=== PATIENT | female | born 1935 | race Caucasian/White ===

== ENCOUNTER 2019-12-01 01:42 | Inpatient (IN) | payer MEDICARE ==
[2019-12-01] MEDS ORDERED: Aspirin 325 MG TAB ONE (02:31)
[2019-12-01 04:51] VITALS: BMI 27.9
[2019-12-01] MEDS ORDERED: Acetaminophen/Codeine 30-300mg Tablet PO PRN (06:10)
[2019-12-01 06:46] LABS: Anion Gap 15 mmol/L (10-20); BUN (Urea Nitrogen) 46 mg/dL (9.8-20.1); Calc. Creatinine Clearance 42 mL/min (70-130); Calcium 8.4 mg/dL (7.8-10.44); Carbon Dioxide 14 mmol/L (23-31); Chloride 119 mmol/L (98-107); Estimated GFR-MDRD 48; Glucose 105 mg/dL (83-110); Potassium 4.2 mmol/L (3.5-5.1); Sodium 144 mmol/L (136-145)
[2019-12-01 06:47] LABS: Troponin I 0.184 ng/mL (< 0.028)
--- NOTE | 2019-12-01 07:23 | HP ---
PRIMARY CARE PHYSICIAN: Dr. Huffman. SENIOR CYTOTECHNOLOGIST: Jackie Hampton MD CHIEF COMPLAINT: Low heart rate. HISTORY OF PRESENT ILLNESS: An 84-year-old female with past medical history of congestive heart failure, hypertension, dyslipidemia, rheumatoid arthritis, who presented to [facility] ER after noticing low heart rates of 38 beats per minute in the absence of angina, near-syncope or syncope prompting further evaluation. The patient reports that she takes metoprolol-XL 50 mg daily and checks her blood pressure and heart rate routinely with resting heart rates normally around 60 beats per minute. Three days ago, she noted her heart rate is dropping to approximately 38 beats per minute in the absence of near-syncope or syncope or angina and called her primary care physician's office, who instructed her to hold her metoprolol-XL tablet for 2 days' duration and reduce the dose by one-half. For the next few days, her resting heart rates improved to 60 beats per minute. Yesterday morning, she took one-half tablet (25 mg) and again, her resting heart rates were low, prompting further evaluation. The patient denies any other changes in medications. She denies any insect bites. In ER, 12-lead EKG reveals sinus bradycardia, 41 beats per minute and T-wave inversions in V1 and V2. Initial troponin was negative with repeat troponin of indeterminate value of 0.220. The patient was admitted for further observation. Remainder of labs and chemistries are unremarkable at bedside. At bedside, the patient is accompanied by son and [id number]. She continues to feel well and offers no acute complaints. She is noted to have resting heart rates of 39 beats per minute. She states she saw her cdl dedicated truck driver 3 weeks ago and had an echocardiogram done with noted valvular heart disease, but was otherwise reassured. She denies any cardiac risk stratification. She denies any prior history of NE or coronary artery disease. She feels well and is functional at baseline and lives at home alone using a walker. PAST MEDICAL HISTORY: Congestive heart failure, hypertension, dyslipidemia, and rheumatoid arthritis. PAST SURGICAL HISTORY: Knee replacements. SOCIAL HISTORY: The patient lives at home alone. She uses a walker to ambulate. She denies tobacco, alcohol, or illicit drug use. ALLERGIES: NONE REPORTED. REVIEW OF SYSTEMS: Pertinent positives as per HPI. Remainder of review of systems negative. HOME MEDICATIONS: Reviewed as per admission medication reconciliation. FAMILY HISTORY: The patient denies any family history of premature coronary artery disease. She notes her father had an NE in his 70s. PHYSICAL EXAMINATION: VITAL SIGNS: Temperature 98.1; pulse currently 39, sinus bradycardia on telemetry; blood pressure 184/50; oxygen saturation 95% room air; and respirations 16, unlabored. GENERAL APPEARANCE: This is an elderly female, who is awake, alert, oriented, coherent, lucid, not in any obvious distress. HEENT: Normocephalic, atraumatic. No facial asymmetry. Pupils are equally round. Extraocular muscles intact. NECK: Supple. CARDIOVASCULAR SYSTEM: S1 and S2. Regular rate and rhythm. There is audible systolic murmur noted. No chest wall tenderness to palpation. LUNGS: Bilateral equal air entry on posterior auscultation. Nonlabored respirations. No wheezing or rales. Symmetrical chest expansion. ABDOMEN: Soft, nontender, and nondistended. EXTREMITIES: There are chronic skin changes noted overlying bilateral lower extremities from prior surgical scars. No cyanosis or deformity. SKIN: Warm to touch without rash, pallor, or abrasion. LABORATORY VALUES: Sodium 145, potassium 4.4, chloride 119, bicarb 16, calcium 9.0, glucose 122, and BUN and creatinine 50/1.24. Total protein 6.1, albumin 3.5, alkaline phosphatase 131, AST 36, ALT 70. Urinalysis unremarkable. WBC 12.0, H and H of 8.4/27.1, and platelets 268. Lactic acid of 1.0. IMAGING DATA: One-view chest x-ray reveals mild scarring and atelectasis in lung base with no focal consolidation and chronic-appearing interstitial prominence. EKG; review of April 2017 EKG with sinus bradycardia with first-degree AV block and Q-waves noted in leads III and aVF with upright T-waves in V2. A 12-lead EKG on 12/01/2019, sinus bradycardia with Q-waves noted in lead III with T-wave inversion in lead V2. ASSESSMENT: 1. Asymptomatic sinus bradycardia of unspecified etiology. The patient will be admitted to telemetry observation unit. We will obtain serial cardiac biomarkers to exclude acute coronary syndrome in the absence of anginal complaints. The patient restarted her metoprolol-XL tablet yesterday, taking one-half dose (25 mg) after 2 days of cessation secondary to bradycardia noted approximately 3 days ago on long setting of metoprolol-XL 50 mg dose. We will consult the patient's cdl dedicated truck driver for further evaluation. The patient has had recent transthoracic echocardiogram obtained weeks ago in the outpatient office. We will maintain n.p.o. in the event of any further cardiac risk stratification. We will hold all oral atrioventricular wendy blocking agents. The patient denies any complaints of near syncope or syncope. 2. Congestive heart failure of unspecified time, not in exacerbation. The patient had recent TTE done as outpatient and we will await outpatient review of records by covering cdl dedicated truck driver. 3. Hypertension, uncontrolled. Monitor blood pressures and we will restart home medications with caution. 4. Rheumatoid arthritis. The patient is on home disease-modifying antirheumatic drugs. 5. Chronic anemia with macrocytosis. 6. Deep venous thrombosis prophylaxis. Bilateral lower extremity SCDs and ambulation. 7. Code status: Unspecified. The patient will be maintained a full code at this time. 8. Disposition: Telemetry observation admission. The patient was seen and examined on 12/01/2019. Job ID: [id number]
[2019-12-01 07:36] LABS: Hemoglobin 8.3 g/dL (12.0-16.0)
[2019-12-01] MEDS: Ascorbic Acid 500 mg Chewable Tablet PO SCH ×2 (08:48→21:22)
[2019-12-01] MEDS: Hydroxychloroquine Sulfate 200 MG TAB PO SCH (08:48)
[2019-12-01] MEDS: Spironolactone 25 MG TAB PO SCH (08:48)
[2019-12-01] MEDS: hydrALAZINE 25 MG TAB PO SCH ×2 (08:48→14:58)
[2019-12-01] MEDS: Furosemide 20 MG TAB PO SCH (08:48)
[2019-12-01] MEDS: Potassium Chloride 10 MEQ TAB PO SCH (08:48)
[2019-12-01] MEDS: Ferrous Sulfate 325 MG TAB PO SCH (08:48)
[2019-12-01] MEDS: Saccharomyces boulardii 250 MG CAP PO SCH (08:49)
[2019-12-01] MEDS: Multivit, Therapeutic 1 TAB PO SCH (08:49)
[2019-12-01] MEDS: Aspirin 81 mg Enteric Coated Tablet PO SCH (08:49)
[2019-12-01] MEDS: Leflunomide 10 mg Tablet PO SCH (09:23)
[2019-12-01 10:15] LABS: Troponin I 0.191 ng/mL (< 0.028)
--- NOTE | 2019-12-01 11:41 | CON ---
DATE OF CONSULTATION: 12/01/2019 REASON FOR CONSULTATION: Bradycardia. PRIMARY MARKETING COMMUNICATIONS MANAGER: Dr. Jackie Hampton. HISTORY OF PRESENT ILLNESS: Ms. Irizarry is a very pleasant 84-year-old white female, who comes to the hospital for bradycardia. She recently noticed that her heart rate was in the 30s. She went to see her PCP, who recommended that she stop her metoprolol for two days and then start at a lower dose. She did just that and her heart rate actually went back up to the 60s after two days, she restarted at a lower dose and had been doing well up until a couple of days ago, when she noted her heart rate was down to the 30s. She was brought in and was found to be in 2:1 AV block, so she was admitted for this. Cardiology is being consulted for further recommendations. On my evaluation, Ms. Irizarry denies any chest pain, tightness, or pressure. No shortness of breath. No lightheadedness. No syncope or presyncope. She feels a little tired, but this is no different than when she normally feels everyday. She has been taking the metoprolol at half dose, but has not been given any here since she came in for bradycardia. She had an echocardiogram in the office in middle of October, which showed EF at 60% to 65% with mild MR and mild TR, no major valvular abnormalities. Her blood pressure here has been somewhat elevated. PAST MEDICAL HISTORY: 1. Hypertension. 2. History of diastolic heart failure. 3. Hyperlipidemia. 4. Rheumatoid arthritis. SURGICAL HISTORY: 1. Knee replacement. 2. Bladder suspension. 3. Right lower extremity I and D with wound VAC in the past for an infection. 4. Mastectomy on the left side. SOCIAL HISTORY: No alcohol, tobacco, or drugs. FAMILY HISTORY: Noncontributory. OUTPATIENT MEDICATIONS: 1. Aspirin 81 a day. 2. Ferrous sulfate. 3. Vitamin C. 4. Tylenol No. 3. 5. Vitamin D3. 6. Florastor. 7. Multivitamin daily. 8. Plaquenil. 9. Zocor 20 mg at bedtime. 10. Toprol-XL 50 mg a day. 11. Leflunomide 20 mg a day. 12. Spironolactone 25 mg a day. 13. Potassium chloride 10 mEq a day. 14. Furosemide 20 mg a day. 15. Hydralazine 25 mg t.i.d. 16. Imdur 60 mg daily. ALLERGIES: NO KNOWN DRUG ALLERGIES. REVIEW OF SYSTEMS: A 12-point review of systems was done and was all negative unless stated in the history of present illness. PHYSICAL EXAMINATION: VITAL SIGNS: Temperature 97.7, pulse 36, respiratory rate 18, saturations 96% on room air, blood pressure 162/71. GENERAL: Awake, alert, and oriented x3. In no distress. HEENT: Normocephalic and atraumatic. NECK: Supple. LUNGS: Clear. CARDIOVASCULAR: S1 and S2. No S3 or S4. There is a grade 2/6 systolic murmur at the apex, holosystolic. ABDOMEN: Soft. Positive bowel sounds. EXTREMITIES: 1+ edema. SKIN: Warm and dry. LABORATORY WORK: Reviewed. CBC with a hemoglobin of 8.3. Chemistries were unremarkable except for BUN of 46, creatinine of 1.09. Troponin was 0.22, 0.18, 0.19. TSH was normal. EKG was reviewed. Telemetry was reviewed. ASSESSMENT AND PLAN: High-degree AV block. She has had episodes of complete heart block, but mostly 2:1 AV block. At this point, I would recommend to hold her beta-dominic indefinitely. She has had episodes of bradycardia in the past and most likely will end up requiring a pacemaker. Dr. Hampton will evaluate in the morning and decide about the timing of the pacemaker. At this point, she does have a class 1 indication. We will leave n.p.o. post midnight in preparation for pacemaker in the next few days. Thank you for letting us to participate in the care of your patient. We will follow. Job ID: [id number]
[2019-12-01] MEDS: Atorvastatin Calcium 10 MG TAB PO SCH (21:22)
[2019-12-02 04:53] LABS: INR-International Normal Ratio 1.1; PTT 27.5 SEC (22.9-36.1); Prothrombin Time 14.6 SEC (12.0-14.7)
[2019-12-02 05:07] LABS: Anion Gap 10 mmol/L (10-20); BUN (Urea Nitrogen) 51 mg/dL (9.8-20.1); Calc. Creatinine Clearance 39 mL/min (70-130); Calcium 7.9 mg/dL (7.8-10.44); Carbon Dioxide 17 mmol/L (23-31); Chloride 118 mmol/L (98-107); Estimated GFR-MDRD 44; Glucose 104 mg/dL (83-110); Sodium 141 mmol/L (136-145)
[2019-12-02 05:23] LABS: #Basophils 0.1 thou/uL (0.0-0.2); #Eosinphils 0.3 thou/uL (0.0-0.7); #Lymphocytes 1.7 thou/uL (1.20-3.40); #Monocytes 0.8 thou/uL (0.11-0.59); #Neutrophils 6.3 thou/uL (1.40-6.50); %Basophils 0.7 % (0.0-1.0); %Eosinophils 2.9 % (0.0-10.0); %Lymphocytes 18.2 % (21.0-51.0); %Monocytes 9.1 % (0.0-10.0); Hemoglobin 7.6 g/dL (12.0-16.0); MDiff Complete? YES; Macrocytosis SLIGHT = 6-15 cells (100X) (0-5/hpf); Mean Corpuscular HGB CONC 31.8 g/dL (32.0-36.0); Mean Corpuscular Hemoglobin 34.3 pg (27.0-31.0); Mean Platelet Volume 8.9 fL (7.4-10.4); Platelet Count 219 thou/uL (130-400); Platelet Morphology Comment Appears Adequate; Red Blood Cell (RBC) Count 2.22 mill/uL (4.20-5.40); White Blood Cell (WBC) Count 9.1 thou/uL (4.8-10.8)
[2019-12-02] MEDS: Hydroxychloroquine Sulfate 200 MG TAB PO SCH (08:04)
[2019-12-02] MEDS: Ascorbic Acid 500 mg Chewable Tablet PO SCH ×2 (08:04→20:01)
[2019-12-02] MEDS: Potassium Chloride 10 MEQ TAB PO SCH (08:05)
[2019-12-02] MEDS: Spironolactone 25 MG TAB PO SCH (08:05)
[2019-12-02] MEDS: Multivit, Therapeutic 1 TAB PO SCH (08:05)
[2019-12-02] MEDS: Ferrous Sulfate 325 MG TAB PO SCH (08:05)
[2019-12-02] MEDS: Saccharomyces boulardii 250 MG CAP PO SCH (08:05)
[2019-12-02] MEDS: Furosemide 20 MG TAB PO SCH (08:05)
[2019-12-02] MEDS: Aspirin 81 mg Enteric Coated Tablet PO SCH (08:05)
[2019-12-02 08:21] LABS: Hemoglobin 8.5 g/dL (12.0-16.0)
--- NOTE | 2019-12-02 08:37 | PDOC.CPN ---
- Subjective Date: 12/02/19 Time: 08:40 Interval history: The pt seen and examined. No overnight events. No cardiac complaints - Objective Allergies/Adverse Reactions: Allergies Allergy/AdvReac Type Severity Reaction Status Date / Time No Known Allergies Allergy Verified 12/01/19 04:52 Visit Medications: Current Medications Acetaminophen/Codeine Phosphate (Tylenol #3) 1 tab PO Q8H PRN PRN Reason: Severe Pain (7-10) Ascorbic Acid (Vitamin C) 500 mg PO BID [facility] Last Admin: 12/02/19 08:04 Dose: 500 mg Aspirin (Ecotrin) 81 mg PO DAILY [facility] Last Admin: 12/02/19 08:05 Dose: 81 mg Atorvastatin Calcium (Lipitor) 10 mg PO HS [facility] Last Admin: 12/01/19 21:22 Dose: 10 mg Cholecalciferol (Vitamin D3) 5,000 units PO DAILY [facility] Last Admin: 12/01/19 08:49 Dose: 5,000 units Ferrous Sulfate (Feosol) [address] [facility] Last Admin: 12/02/19 08:05 Dose: 325 mg Furosemide (Lasix) 20 mg PO DAILY [facility] Last Admin: 12/02/19 08:05 Dose: 20 mg Hydralazine HCl (Apresoline) 50 mg PO TID [facility] Hydralazine HCl (Apresoline) 25 mg PO ONE [facility] Hydroxychloroquine Sulfate (Plaquenil) 300 mg PO DAILY [facility] Last Admin: 12/02/19 08:04 Dose: 300 mg Isosorbide Mononitrate (Imdur) 60 mg PO BID [facility] Last Admin: 12/02/19 08:05 Dose: 60 mg Leflunomide (Arava) 20 mg PO DAILY [facility] Last Admin: 12/01/19 09:23 Dose: 20 mg Multivitamins (Theragran) 1 tab PO DAILY [facility] Last Admin: 12/02/19 08:05 Dose: 1 tab Potassium Chloride (Klor-Con 10) [address] [facility] Last Admin: 12/02/19 08:05 Dose: 10 meq Saccharomyces Boulardii (Florastor) 250 mg PO DAILY [facility] Last Admin: 12/02/19 08:05 Dose: 250 mg Sodium Chloride (Flush - Normal Saline) 10 ml IVF Q12HR [facility] Last Admin: 12/02/19 08:06 Dose: 10 ml Sodium Chloride (Flush - Normal Saline) 10 ml IVF PRN PRN PRN Reason: Saline Flush Sodium Chloride (Flush - Normal Saline) 10 ml IVF Q12HR [facility] Last Admin: 12/02/19 08:06 Dose: Not Given Sodium Chloride (Flush - Normal Saline) 10 ml IVF PRN PRN PRN Reason: Saline Flush Spironolactone (Aldactone) 25 mg PO QAM-WM [facility] Last Admin: 12/02/19 08:05 Dose: 25 mg Vital Signs & Weight: Vital Signs Temp Pulse Resp BP Pulse Ox 12/02/19 08:10 44 L 12/02/19 08:00 99.0 F 36 L 16 190/74 H 96 12/02/19 04:00 97.9 F 46 L 16 135/62 96 Weight 152 lb 12.8 oz - Physical Exam General: alert & oriented x3 HEENT: mucus membranes moist Neck: supple neck Cardiac: regular rate and rhythm, S1/S2 Lungs: clear to auscultation Extremities: other: (2-3+ pitting BLE edema with discoloration) - Labs Result Diagrams: 12/02/19 07:54 12/02/19 04:08 Troponin/CKMB Troponin I 0.191 ng/mL (< 0.028) H 12/01/19 09:31 - Telemetry Sinus rhythms and dysrhythmias: sinus rhythm - Assessment/Plan Assessment/Plan: 1. CHB - plan for PM placement; however, her Hgb today is 8.5; the pt is asymptomatic but still in CHB and HR <30bpm. 2. HTN - increase Hydralazine from 25mg to 50mg TID from this AM 3. Anemia - unchanged; However, she has not had any workup for hx of Anemia according to her medical record, she may need further exams/study, such as Guaiac stool exam? 4. HLD - on Lipitor 5. Chronic diastolic HF - Asymptomatic; holding Metoprolol due to bradycardia; Not on DAMIR/ARB due to hx of CKD 6. CKD 7. chronic BLE edema MAR reviewed pt. seen and eval. by me. i agree with the A/P by the DIGITAL MEDIA REPRESENTATIVE. I have explained the procedure and risks to the pt. and she agrees to proceed.
[2019-12-02] MEDS ORDERED: hydrALAZINE 25 MG TAB PO SCH ×2 (08:45→09:00)
[2019-12-02] MEDS: Leflunomide 10 mg Tablet PO SCH (09:29)
[2019-12-02] MEDS ORDERED: Iopamidol 370 76% 50 ML VIAL FS ONE (11:22)
[2019-12-02] MEDS ORDERED: Midazolam HCl 2 mg/2 ml Vial ONE (12:21)
[2019-12-02] MEDS ORDERED: Gentamicin 80 MG/2 ML VIAL ONE (12:21)
[2019-12-02] MEDS ORDERED: CEFAZOLIN 1 GM VIAL ONE (12:21)
[2019-12-02] MEDS ORDERED: Morphine 2 MG/ML SYRINGE ONE (13:12)
[2019-12-02] MEDS ORDERED: hydrALAZINE 20 MG/ML VIAL ONE (13:12)
[2019-12-02] MEDS: hydrALAZINE 25 MG TAB PO SCH ×2 (15:31→20:01)
--- NOTE | 2019-12-02 15:36 | PDOC.HOSPP ---
- Subjective Subjective: Feels well. Has not really felt poorly throughout this process. A little anxious about the procedure. - Objective Vital Signs & Weight: Vital Signs (12 hours) Temp Pulse Resp BP BP Pulse Ox 12/02/19 15:31 70 171/73 H 12/02/19 13:45 71 16 164/70 H 95 12/02/19 11:09 97.9 F 43 L 16 132/60 95 12/02/19 09:29 44 L 162/72 H 12/02/19 08:10 44 L 12/02/19 08:00 99.0 F 36 L 16 190/74 H 96 12/02/19 04:00 97.9 F 46 L 16 135/62 96 Weight Weight 152 lb 12.8 oz I&O: 12/01/19 12/02/19 12/03/19 06:59 06:59 06:59 Intake Total 0 450 Output Total 100 300 Balance -100 150 Result Diagrams: 12/02/19 07:54 12/02/19 04:08 Hospitalist ROS - Medication Medications: Active Medications Generic Name Dose Route Start Last Admin Trade Name Freq PRN Reason Stop Dose Admin Ascorbic Acid 500 mg 12/01/19 09:00 12/02/19 08:04 Vitamin C PO 500 mg BID [facility] Administration Aspirin 81 mg 12/01/19 09:00 12/02/19 08:05 Ecotrin PO 81 mg DAILY [facility] Administration Atorvastatin Calcium 10 mg 12/01/19 21:00 12/01/19 21:22 Lipitor PO 10 mg HS [facility] Administration Cholecalciferol 5,000 units 12/01/19 09:00 12/02/19 09:29 Vitamin D3 PO 5,000 units DAILY [facility] Administration Ferrous Sulfate 325 mg 12/01/19 08:00 12/02/19 08:05 Feosol PO 325 mg QAM-WM [facility] Administration Furosemide 20 mg 12/01/19 09:00 12/02/19 08:05 Lasix PO 20 mg DAILY [facility] Administration Hydralazine HCl 50 mg 12/02/19 15:00 12/02/19 15:31 Apresoline PO 50 mg TID [facility] Administration Hydroxychloroquine Sulfate 300 mg 12/01/19 09:00 12/02/19 08:04 Plaquenil PO 300 mg DAILY [facility] Administration Isosorbide Mononitrate 60 mg 12/02/19 09:00 12/02/19 08:05 Imdur PO 60 mg BID [facility] Administration Leflunomide 20 mg 12/01/19 09:00 12/02/19 09:29 Arava PO 20 mg DAILY [facility] Administration Multivitamins 1 tab 12/01/19 09:00 12/02/19 08:05 Theragran PO 1 tab DAILY [facility] Administration Potassium Chloride 10 meq 12/01/19 08:00 12/02/19 08:05 Klor-Con 10 PO 10 meq QAM-WM [facility] Administration Saccharomyces Boulardii 250 mg 12/01/19 09:00 12/02/19 08:05 Florastor PO 250 mg DAILY [facility] Administration Sodium Chloride 10 ml 12/01/19 21:00 12/02/19 08:06 Flush - Normal Saline IVF 10 ml Q12HR [facility] Administration Sodium Chloride 10 ml 12/02/19 09:00 12/02/19 08:06 Flush - Normal Saline IVF Not Given Q12HR [facility] Spironolactone 25 mg 12/01/19 08:00 12/02/19 08:05 Aldactone PO 25 mg QAM-WM [facility] Administration - Exam General Appearance: NAD, awake alert Heart: RRR, no murmur, no gallops, no rubs, normal peripheral pulses Heart - other findings: Bradycardic. Respiratory: CTAB, no wheezes, no rales, no ronchi, normal chest expansion, no tachypnea, normal percussion Gastrointestinal: soft, non-tender, non-distended, normal bowel sounds, no palpable masses, no hepatomegaly, no splenomegaly, no bruit Extremities: no edema Hosp A/P (1) Bradycardia Code(s): R00.1 - BRADYCARDIA, UNSPECIFIED Status: Acute (2) Anemia in chronic illness Code(s): D63.8 - ANEMIA IN OTHER CHRONIC DISEASES CLASSIFIED ELSEWHERE Status : Chronic (3) Dyslipidemia Code(s): E78.5 - HYPERLIPIDEMIA, UNSPECIFIED Status: Chronic (4) HTN (hypertension) Code(s): I10 - ESSENTIAL (PRIMARY) HYPERTENSION Status: Chronic (5) Paroxysmal atrial fibrillation Code(s): I48.0 - PAROXYSMAL ATRIAL FIBRILLATION Status: Chronic (6) CKD (chronic kidney disease), stage III Code(s): N18.3 - CHRONIC KIDNEY DISEASE, STAGE 3 (MODERATE) Status: Acute - Plan Doing well. Plan is for PPM later today if possible. Will likely watch overnight and anticipate DC in am.
--- NOTE | 2019-12-02 15:53 | RAD ---
RADIOGRAPH CHEST 1 VIEW: DATE: 12-02-2019 COMPARISON: 10-20-2015 HISTORY: 84-year-old female status post cardiac device placement. FINDINGS: There are no air space densities, pulmonary edema, pneumothorax, or cardiomegaly. The lateral costop hrenic angles are sharp. There is a new finding of a dual-lead right subclavian transvenous permanent pacemaker with lead tips overlying the expected locations of the right apical appendage and right ve ntricle. IMPRESSION: 1. No acute cardiopulmonary findings. 2. Interval placement of right sided pacemaker. jn POS: OFF
[2019-12-02] MEDS: Atorvastatin Calcium 10 MG TAB PO SCH (20:01)
[2019-12-03 04:37] LABS: #Eosinphils 0.2 thou/uL (0.0-0.7); #Lymphocytes 1.2 thou/uL (1.20-3.40); #Monocytes 0.9 thou/uL (0.11-0.59); #Neutrophils 7.7 thou/uL (1.40-6.50); %Basophils 0.4 % (0.0-1.0); %Eosinophils 1.6 % (0.0-10.0); %Lymphocytes 11.9 % (21.0-51.0); %Monocytes 9.2 % (0.0-10.0); %Neutrophils 76.9 % (42.0-75.0); Hemoglobin 7.8 g/dL (12.0-16.0); Mean Corpuscular HGB CONC 32.3 g/dL (32.0-36.0); Mean Platelet Volume 8.7 fL (7.4-10.4); Platelet Count 222 thou/uL (130-400); RBC Distribution Width 14.6 % (11.5-14.5); Red Blood Cell (RBC) Count 2.31 mill/uL (4.20-5.40)
[2019-12-03] MEDS: Ascorbic Acid 500 mg Chewable Tablet PO SCH (08:29)
[2019-12-03] MEDS: Multivit, Therapeutic 1 TAB PO SCH (08:29)
[2019-12-03] MEDS: Leflunomide 10 mg Tablet PO SCH (08:29)
[2019-12-03] MEDS: Potassium Chloride 10 MEQ TAB PO SCH (08:29)
[2019-12-03] MEDS: Spironolactone 25 MG TAB PO SCH (08:29)
[2019-12-03] MEDS: Aspirin 81 mg Enteric Coated Tablet PO SCH (08:30)
[2019-12-03] MEDS: Furosemide 20 MG TAB PO SCH (08:30)
[2019-12-03] MEDS: Ferrous Sulfate 325 MG TAB PO SCH (08:30)
[2019-12-03] MEDS: Saccharomyces boulardii 250 MG CAP PO SCH (08:30)
[2019-12-03] MEDS: Hydroxychloroquine Sulfate 200 MG TAB PO SCH (08:30)
[2019-12-03] MEDS: hydrALAZINE 25 MG TAB PO SCH (08:30)
--- NOTE | 2019-12-03 10:43 | PDOC.CPN ---
- Subjective Date: 12/03/19 Time: 10:53 Interval history: The pt seen and examined. No overnight events. No cardiac complaints. - Objective Allergies/Adverse Reactions: Allergies Allergy/AdvReac Type Severity Reaction Status Date / Time No Known Allergies Allergy Verified 12/01/19 04:52 Visit Medications: Current Medications Acetaminophen/Codeine Phosphate (Tylenol #3) 1 tab PO Q8H PRN PRN Reason: Severe Pain (7-10) Last Admin: 12/03/19 01:06 Dose: 1 tab Ascorbic Acid (Vitamin C) 500 mg PO BID [facility] Last Admin: 12/03/19 08:29 Dose: 500 mg Aspirin (Ecotrin) 81 mg PO DAILY [facility] Last Admin: 12/03/19 08:30 Dose: 81 mg Atorvastatin Calcium (Lipitor) 10 mg PO HS [facility] Last Admin: 12/02/19 20:01 Dose: 10 mg Cholecalciferol (Vitamin D3) 5,000 units PO DAILY [facility] Last Admin: 12/03/19 08:29 Dose: 5,000 units Ferrous Sulfate (Feosol) 325 mg PO [facility] Last Admin: 12/03/19 08:30 Dose: 325 mg Furosemide (Lasix) 20 mg PO DAILY [facility] Last Admin: 12/03/19 08:30 Dose: 20 mg Hydralazine HCl (Apresoline) 50 mg PO TID [facility] Last Admin: 12/03/19 08:30 Dose: 50 mg Hydroxychloroquine Sulfate (Plaquenil) 300 mg PO DAILY [facility] Last Admin: 12/03/19 08:30 Dose: 300 mg Isosorbide Mononitrate (Imdur) 60 mg PO BID [facility] Last Admin: 12/03/19 08:30 Dose: 60 mg Leflunomide (Arava) 20 mg PO DAILY [facility] Last Admin: 12/03/19 08:29 Dose: 20 mg Metoprolol Succinate (Toprol Xl) 50 mg PO DAILY [facility] Last Admin: 12/03/19 08:29 Dose: 50 mg Multivitamins (Theragran) 1 tab PO DAILY [facility] Last Admin: 12/03/19 08:29 Dose: 1 tab Potassium Chloride (Klor-Con 10) 10 meq PO [facility] Last Admin: 12/03/19 08:29 Dose: 10 meq Saccharomyces Boulardii (Florastor) 250 mg PO DAILY [facility] Last Admin: 12/03/19 08:30 Dose: 250 mg Sodium Chloride (Flush - Normal Saline) 10 ml IVF Q12HR [facility] Last Admin: 12/03/19 08:30 Dose: 10 ml Sodium Chloride (Flush - Normal Saline) 10 ml IVF PRN PRN PRN Reason: Saline Flush Sodium Chloride (Flush - Normal Saline) 10 ml IVF Q12HR [facility] Last Admin: 12/03/19 08:30 Dose: Not Given Sodium Chloride (Flush - Normal Saline) 10 ml IVF PRN PRN PRN Reason: Saline Flush Spironolactone (Aldactone) 25 mg PO QAM-WM [facility] Last Admin: 12/03/19 08:29 Dose: 25 mg Vital Signs & Weight: Vital Signs Temp Pulse Resp BP Pulse Ox 12/03/19 08:25 98.0 F 67 18 150/67 H 94 L 12/03/19 03:50 98.3 F 61 16 137/62 95 Weight 152 lb 12.8 oz - Physical Exam General: alert & oriented x3 HEENT: mucus membranes moist Neck: supple neck Cardiac: regular rate and rhythm, S1/S2 Lungs: clear to auscultation Extremities: other: (3+ non-pitting BLE edema) - Labs Result Diagrams: 12/03/19 04:21 12/02/19 04:08 Troponin/CKMB Troponin I 0.191 ng/mL (< 0.028) H 12/01/19 09:31 - Assessment/Plan Assessment/Plan: 1. CHB with s/p PM placement on 12/02/2019 - V paced. The PM site with hematoma around the site without any swelling or warm to touch around the site 2. HTN - stable 3. Anemia - unchanged; per family, she has been checked by guaiac and UA every year with normal results. 4. HLD - on Lipitor 5. Chronic diastolic HF - Asymptomatic; resumed Metoprolol after pacemaker insertion. Not on DAMIR/ARB due to hx of CKD 6. CKD - The pt has been f/u with Dr Santizo as outpt 7. chronic BLE edema. Resolved This was likely due to CHF exacerbated by the CHB and severe bradycardia. MAR reviewed * From Cardiac standpoint, the pt will f/u with Dr Hampton' Nurse in 10 days for the PM site check and initial PM interrogation in the office in 3 months. I have seen and eval. the pt. she feels much better. several times to urinate and the edema has resolved. She may benefit from a hematology evaluation as an outpt. due to her chronic edema. Stools have been neg. for occult blood in the past. daylin
[2019-12-03 11:43] VITALS: BP 135/63; TEMP 97.8
--- NOTE | 2019-12-03 16:37 | CCL ---
Date of procedure: 12/02/19 INDICATION: This is an 84-year-old female who was admitted with severe bradycardia and intermittent third degree AV heart block and otherwise secondary AV heart block type II. She was advised to undergo dural chamb er pacemaker insertion. She was taken to the cardiac lab support technician where she underwent the procedure today without difficulties or complications. She has had a left mastectomy and the pacemaker was placed on the right infraclavicul ar area without difficulties or complications. The patient did develop hypertension during the proced ure and was given medications for lowering the blood pressure such as Hydralazine and then this impro shannen. Otherwise there were no significant complications noted. She was inserted with an [place] S MRI co mpatible device from [employer]. Two screw-in leads were placed. One in the atrium and one in the vent ricle. The pacemaker was set with the ventricle. Pacemaker was set with the upper rate at 120 and the lower rate was set at 60. The full dictated note will be found in the chart.
== END 2019-12-03 14:00 | disposition home or self-care (01) | DRG 242 ==
LOC: ERS 01:42 → 2SW 04:16 → OBSVTOIN 11:23 → 2NO 16:37
PROVIDERS: ADMIT Hospitalist; ATTEND Internal Medicine
PROC: 0JH606Z Insertion of Pacemaker, Dual Chamber into Chest Subcutaneous Tissue and Fascia, Open Approach (ICD-10-PCS; principal; 2019-12-01)
PROC: 02HK3JZ Insertion of Pacemaker Lead into Right Ventricle, Percutaneous Approach (ICD-10-PCS; 2019-12-01)
PROC: 02H63JZ Insertion of Pacemaker Lead into Right Atrium, Percutaneous Approach (ICD-10-PCS; 2019-12-01)
DX: I44.2 Atrioventricular block, complete (principal); I50.33 Acute on chronic diastolic (congestive) heart failure; I13.0 Hypertensive heart and chronic kidney disease with heart failure and stage 1 through stage 4 chronic kidney disease, or unspecified chronic kidney disease; E78.5 Hyperlipidemia, unspecified; M06.9 Rheumatoid arthritis, unspecified; Z96.653 Presence of artificial knee joint, bilateral; D63.1 Anemia in chronic kidney disease; I44.39 Other atrioventricular block; E11.22 Type 2 diabetes mellitus with diabetic chronic kidney disease; E78.00 Pure hypercholesterolemia, unspecified; I48.0 Paroxysmal atrial fibrillation; N18.9 Chronic kidney disease, unspecified; D75.89 Other specified diseases of blood and blood-forming organs; Z90.12 Acquired absence of left breast and nipple; Z79.01 Long term (current) use of anticoagulants
CPT/HCPCS: 33208; 36005; 36415; 71045; 75820; 80048; 84443; 84484; 85014; 85018; 85025; 85610; 85730; 86850; 86900; 86901; 93005; 93010; 93798; 99152; C1785; C1898; J0360; J0690; J1580; J2250; J2270; Q9967

== ENCOUNTER 2020-11-07 12:50 | Inpatient (IN) | payer MEDICARE ==
--- NOTE | 2020-11-07 14:44 | PDOC.HHP ---
Hospitalist HPI - History of Present Illness History of Present Illness: ADMISSION DATE:11/07/2020 TIME OF ASSESSMENT: 1400 PRIMARY CARE PHYSICIAN: Dr. Yonas Huffman CHIEF COMPLAINT: Lower leg weakness and fall HPI: This is an 85-year-old woman who presents to the emergency department following a fall early hours this morning. Patient lives alone and usually gets around with a walker and states that in the middle the night around 1 AM she got up to use the restroom and suddenly felt weak. She states stood still and then felt her legs give way causing her to fall onto her bottom. Denies any head injury. She was unable to stand and therefore remain on the floor until approximately 7 AM when her daughter called to check on her as she usually does. When she did not answer the phone after three times her daughter called her son who then came quickly to check on her and saw that she was on the ground. The patient was alert and responding to questions appropriately. She did not lose consciousness at any point. Denies any preceding dizziness chest pain palpitations or shortness of breath. Has not felt ill in recent days. She has a history of a left hip fracture that caused her to fall in the past but currently denies experiencing any hip pain. ROS: Denies having any nausea or vomiting. No urinary symptoms. Reports having a fairly good appetite. Denies any abdominal pain. She has chronic lower extremity edema that is actually better than it usually is. She also has chronic erythema/venous stasis changes due to peripheral vascular disease. Denies any recent fevers or chills. No cough or hemoptysis. All other review of systems are negative. ED COURSE: She was initially seen at [facility] ER before being transferred here. Work-up there includes the following: EKG showed an atrial sensed ventricular paced rhythm. Heart rate 87 White cell count 26.3, hemoglobin 9.9, hematocrit 31.1, platelets 263, bands of three. BUN 55, creatinine 1.43, potassium 4.3, GFR 33. AST 58, ALT 46, alk phos 119, total bilirubin 0.6, albumin 3.7, CK 1142. Initial troponin 0.26 and second troponin 0.37. Urinalysis showed moderate amount of blood, trace leukocytes, 10-19 red blood cells, 1-2 white blood cells, occasional bacteria. Head CT demonstrated no acute intracranial abnormality. Pelvic x-ray showed remodeling of the left anterior inferior pubic ramus which does not appear acute. Chest x-ray was done and showed no acute cardiopulmonary abnormality. There is a subacute appearing left 10th rib fracture present. Rapid Covid was done and negative. She was given IV fluids at 125 ml's per hour. On arriving here to the emergency department she was given an additional liter of normal saline. PAST MEDICAL HISTORY: 1. CHF 2. Hypertension 3. Dyslipidemia 4. Rheumatoid arthritis 5. History of left hip fracture in the past. 6. CKD for which she sees Dr. Santizo 7. Anemia of chronic disease 8. History of paroxysmal afib PAST SURGICAL HISTORY: 1. Bilateral knee replacements 2. Bladder suspension 3. Debridement by Dr. Rose of patient's right leg, requiring wound VAC due to poor healing. 4. 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 (Sees Dr. Hampton) SOCIAL HISTORY: Patient lives alone and uses a walker to get around her home. Denies any tobacco use alcohol consumption or drug use. She has four children all of which check on her daily. She has a life alert which she normally has on but did not have up with her at the time she fell. FAMILY HISTORY: Her father had an ND in his 70s. ALLERGIES: No known drug allergies CURRENT MEDICATIONS: Tylenol 3 Alendronate 70 mg p.o. daily Vitamin C 500 mg p.o. daily Aspirin 81 mg p.o. daily Tums p.o. daily Vitamin D3 5000 units p.o. daily Ferrous sulfate 325 mg p.o. daily Lasix 20 mg p.o. daily Hydralazine 25 mg p.o. daily Plaquenil 200 mg p.o. daily Isosorbide mononitrate 60 mg p.o. daily Leflunomide 20 mg p.o. daily Metoprolol 50 mg p.o. daily Multivitamin p.o. daily Potassium chloride 10 mEq p.o. daily Florastor 250 mg p.o. daily Spironolactone 25 mg p.o. daily - Exam General Appearance: NAD, awake alert General - other findings: VS: HR 85, BP 152/79, RR 19, O2 sat 98% on room air, temp 98.5. Eye: PERRL, anicteric sclera ENT: normocephalic atraumatic, no oropharyngeal lesions, moist mucosa Neck: supple, symmetric, no lymphadenopathy Heart: RRR, no murmur, no gallops, no rubs, normal peripheral pulses Respiratory: CTAB, no wheezes, no rales, no ronchi, normal chest expansion Gastrointestinal: soft, non-tender, non-distended, normal bowel sounds, no guarding, no rigidity Gastrointestinal - other findings: intertrigo of right lower abdomen due to adult pads Extremities - other findings: lower leg edema and erythema, per family stable (hx PVD) Skin: normal turgor, no lesions, no rashes Neurological: cranial nerve grossly intact, normal sensation to touch Musculoskeletal: normal tone, generalized weakness Psychiatric: normal affect, normal behavior, A&O x 3 Hospitalist Results - Labs Lab results: Troponin I 0.480 ng/mL (< 0.028) H* 11/07/20 13:38 - Radiology Interpretation CT scan - head Status: report reviewed by il Hospitalist H&P A/P - Problem (1) Fall Code(s): W19.XXXA - UNSPECIFIED FALL, INITIAL ENCOUNTER Status: Acute Assessment and Plan: Per patient secondary to lower leg weakness CT Head negative Obtain Pelvic and bilateral hip xrays (hx of spontaneous hip fracture in the past) Rule out underlying infection PT/OT consulted (2) Lower extremity weakness Code(s): R29.898 - OTH SYMPTOMS AND SIGNS INVOLVING THE MUSCULOSKELETAL SYSTEM Status: Acute Assessment and Plan: As above. Continue falls precautions. (3) Rhabdomyolysis Code(s): M62.82 - RHABDOMYOLYSIS Status: Acute Assessment and Plan: Aggresive fluids given in ED at [facility] and additional L of NS given in ED here Continue gentle hydration repeat CK with AM labs (4) Elevated troponin Code(s): R77.8 - OTHER SPECIFIED ABNORMALITIES OF PLASMA PROTEINS Status: Acute Assessment and Plan: Likely secondary to CKD No chest pain Continue to trend troponins Cardiac monitoring Cardiology consulted per discussion with Dr. Stanford S/p cath in 11/2019 (5) Bandemia Code(s): D72.825 - BANDEMIA Status: Acute Assessment and Plan: Will obtain blood cultures Repeat UA with UCx via straight cath Start broad spectrum antibiotics (Zosyn) Check lactic acid Repeat CBC in am. (6) Erythema intertrigo Code(s): L30.4 - ERYTHEMA INTERTRIGO Status: Acute Assessment and Plan: Wound care consulted Culture from wound/skin Nystatin powder after culture (7) History of cardiac pacemaker Code(s): Z95.0 - PRESENCE OF CARDIAC PACEMAKER Status: Chronic Assessment and Plan: Obtain pacemaker printout (8) CKD (chronic kidney disease), stage III Code(s): N18.3 - CHRONIC KIDNEY DISEASE, STAGE 3 (MODERATE) * DO NOT USE * Sta tus: Chronic Assessment and Plan: Monitor renal function gentle hydration as mentioned above (9) Anemia in chronic illness Code(s): D63.8 - ANEMIA IN OTHER CHRONIC DISEASES CLASSIFIED ELSEWHERE Status: Chronic Assessment and Plan: Monitor H/H (10) Dyslipidemia Code(s): E78.5 - HYPERLIPIDEMIA, UNSPECIFIED Status: Chronic (11) GERD (gastroesophageal reflux disease) Code(s): K21.9 - GASTRO-ESOPHAGEAL REFLUX DISEASE WITHOUT ESOPHAGITIS Status: Chronic Assessment and Plan: Stable (12) HTN (hypertension) Code(s): I10 - ESSENTIAL (PRIMARY) HYPERTENSION Status: Chronic Assessment and Plan: Monitor BP Resume home meds as appropriate once verified - Plan Plan: DVT Prophylaxis: Given full dose Lovenox in ED for suspected NSTEMI Surrogate decision maker: Her daughter Kymberly Mckinney. Case discussed with Dr. Stanford who agrees with plan as above.
[2020-11-07] MEDS ORDERED: Acetaminophen 325 MG TAB PO PRN (15:02)
[2020-11-07] MEDS ORDERED: Acetaminophen 650 MG Suppository PR PRN (15:02)
[2020-11-07 15:05] LABS: CKMB 31.4 ng/mL (0-6.6)
--- NOTE | 2020-11-07 17:12 | CON ---
DATE OF CONSULTATION: 11/07/2020 REASON FOR CONSULTATION: Elevated troponin. PRIMARY DIRECTOR PROCESS ENGINEERING: Jackie Hampton MD HISTORY OF PRESENT ILLNESS: Ms. Irizarry is an 85-year-old woman, who recently fell. She states she is on the ground for 6 hours. No chest pain, pressure, or other associated symptoms. Her peak troponin was 0.4 with elevated CK-MB. Unfortunately, CK was not drawn. She has been diagnosed with rhabdomyolysis. She has no previous history of underlying coronary artery disease. She is currently stable without any symptoms of angina. HOME MEDICATIONS: Include; 1. Imdur 60 q.a.m. 2. Hydralazine 25 daily. 3. Aldactone 25 daily. 4. Lasix 20 mg daily. 5. Potassium chloride 20 mEq daily. 6. Simvastatin 20 daily. 7. Toprol-XL 50 daily. 8. Vitamin C. 9. Iron. 10. Florastor. 11. Vitamin D3. 12. Aspirin. 13. Tylenol. 14. Plaquenil. PAST MEDICAL HISTORY: Includes venous insufficiency, hyperlipidemia, hypertension, sick sinus syndrome, status post pacemaker, chronic kidney disease, followed by Dr. Santizo. SURGICAL HISTORY: Left GSV ablation in 2014, angiogram dated 2001 with normal LVEF, Diana MRI [employer] DDD pacemaker in 11/2019. ALLERGIES: NONE. REVIEW OF SYSTEMS: A 10-point review of systems is reviewed and as above, otherwise negative. PHYSICAL EXAMINATION: GENERAL: Patient is a pleasant woman, who is in no acute distress. The patient appears their stated age. VITAL SIGNS: Blood pressure 154/89, pulse 60, and respirations 20. NEUROLOGIC: The patient is alert and oriented x3 with no focal neurologic deficits. HEENT: Sclerae without icterus. Mouth has moist mucous membranes with normal pallor. NECK: No JVD. Carotid upstroke brisk. No bruits bilaterally. LUNGS: Clear to auscultation with unlabored respirations. BACK: No scoliosis or kyphosis. CARDIAC: Regular rate and rhythm with normal S1 and S2. No S3 or S4 noted. No significant rubs, murmurs, thrills, or gallops noted throughout the precordium. PMI is not displaced. There is no parasternal heave. ABDOMEN: Soft, nontender, nondistended. No peritoneal signs present. No hepatosplenomegaly. No abnormal striae. EXTREMITIES: 2+ femoral and 2+ dorsalis pedis pulses. No cyanosis, clubbing, or edema. SKIN: No gross abnormalities. PERTINENT LABORATORY DATA: CK-MB 31, troponin 0.4. C-reactive protein 7.9. Creatinine 1.17 with a GFR of 44. EKG shows paced rhythm. IMPRESSION: 1. Elevated troponin. 2. Rhabdomyolysis. 3. Status post pacemaker. RECOMMENDATIONS: Ms. Irizarry has an elevated troponin secondary to rhabdomyolysis. This is not consistent with unstable angina. We will have lab draw CK for confirmation. I would recommend conservative therapy. No need to proceed with anticoagulation treatment for unstable angina. Echo Doppler has been ordered. Job ID: [id number]
[2020-11-07] MEDS: Sodium Chloride 0.9% 1,000 ML IV SCH (18:05)
[2020-11-07 18:33] LABS: Hemoglobin 9.5 g/dL (12.0-16.0); Mean Corpuscular HGB CONC 32.9 g/dL (32.0-36.0); Mean Platelet Volume 8.5 fL (7.4-10.4); Platelet Count 258 thou/uL (130-400); RBC Distribution Width 13.4 % (11.5-14.5); White Blood Cell (WBC) Count 22.9 thou/uL (4.8-10.8)
[2020-11-07 18:53] LABS: Band 51 % (5-11); Hypochromia SLIGHT = 6-15 cells (100X) (0-5/hpf); Lymphocytes 8 % (21-51); MDiff Complete? YES; Macrocytosis SLIGHT = 6-15 cells (100X) (0-5/hpf); Monocytes 2 % (0-10); Neutrophil 39 % (42-75); Platelet Morphology Comment Appears Adequate; Polychromasia SLIGHT = 2-3 cells (100X) (0-2/hpf); Reflex for Review?? NO
[2020-11-07 18:55] LABS: Bacteria/HPF None Seen HPF (None Seen); Bilirubin Negative (Negative); Blood, Urine 1+ (Negative); Clarity Clear (Clear); Glucose, Urine (Dipstick) Normal (Negative); Ketone, Urine Negative (Negative); Leukocyte Negative Leu/uL (Negative); Nitrite Negative (Negative); Protein, Urine (Dipstick) Negative (Neg-Trace); Specific Gravity, Urine 1.012 (1.002-1.036); Squamous Epithelial 0-3 HPF (0-3); Urobilinogen Normal mg/dL (Less than 2)
[2020-11-07 18:57] LABS: ALT (SGPT) 55 U/L (8-55); AST (SGOT) 72 U/L (5-34); Albumin 3.3 g/dL (3.4-4.8); Alkaline Phosphatase 113 U/L (40-110); Anion Gap 20 mmol/L (10-20); BUN (Urea Nitrogen) 49 mg/dL (9.8-20.1); Bilirubin, Total 0.7 mg/dL (0.2-1.2); CK (CPK) 1132 U/L (29-168); Calc. Creatinine Clearance 30 mL/min (70-130); Carbon Dioxide 12 mmol/L (23-31); Chloride 116 mmol/L (98-107); Globulin 2.4 g/dL (2.4-3.5); Glucose 209 mg/dL (83-110); Magnesium 1.8 mg/dL (1.6-2.6); Protein, Total 5.7 g/dL (6.0-8.3); Sodium 144 mmol/L (136-145)
[2020-11-07 19:01] LABS: Urine Culture Reflex Yes Yes
[2020-11-07 19:43] LABS: Critical Call Chem Troponin I RESULT DECREASING; Troponin I 0.459 ng/mL (< 0.028)
[2020-11-07] MEDS: Atorvastatin Calcium 10 MG TAB PO SCH (20:48)
[2020-11-07] MEDS: Piperacillin/Tazobactam 2.25 GM in Sodium Chloride 0.9% 100 ML IVPB SCH (20:48)
[2020-11-07] MEDS: Nystatin Powder 15 GM BOT TOP PRN (20:49)
[2020-11-07 21:50] LABS: Critical Call Chem Troponin I RESULT DECREASING; Troponin I 0.397 ng/mL (< 0.028)
[2020-11-08] MEDS: Piperacillin/Tazobactam 2.25 GM in Sodium Chloride 0.9% 100 ML IVPB SCH ×3 (03:28→14:55)
[2020-11-08 03:47] LABS: #Eosinphils 0.1 thou/uL (0.0-0.7); #Lymphocytes 1.5 thou/uL (1.20-3.40); #Neutrophils 14.5 thou/uL (1.40-6.50); %Basophils 0.3 % (0.0-1.0); %Eosinophils 0.4 % (0.0-10.0); %Lymphocytes 8.6 % (21.0-51.0); %Monocytes 5.7 % (0.0-10.0); %Neutrophils 85.1 % (42.0-75.0); Hemoglobin 8.3 g/dL (12.0-16.0); Mean Corpuscular HGB CONC 33.6 g/dL (32.0-36.0); Mean Corpuscular Hemoglobin 34.8 pg (27.0-31.0); Mean Platelet Volume 8.3 fL (7.4-10.4); Platelet Count 227 thou/uL (130-400); RBC Distribution Width 13.2 % (11.5-14.5); Red Blood Cell (RBC) Count 2.37 mill/uL (4.20-5.40); White Blood Cell (WBC) Count 17.1 thou/uL (4.8-10.8)
[2020-11-08 04:05] LABS: Anion Gap 14 mmol/L (10-20); BUN (Urea Nitrogen) 48 mg/dL (9.8-20.1); Calc. Creatinine Clearance 38 mL/min (70-130); Calcium 7.8 mg/dL (7.8-10.44); Carbon Dioxide 14 mmol/L (23-31); Chloride 118 mmol/L (98-107); Glucose 109 mg/dL (83-110); Potassium 3.2 mmol/L (3.5-5.1); Sodium 143 mmol/L (136-145)
[2020-11-08] MEDS: Multivit, Therapeutic 1 TAB PO SCH (08:39)
[2020-11-08] MEDS: Saccharomyces boulardii 250 MG CAP PO SCH (08:39)
[2020-11-08] MEDS: Aspirin 81 mg Enteric Coated Tablet PO SCH (08:39)
[2020-11-08] MEDS: Ferrous Sulfate 325 MG TAB PO SCH (08:39)
[2020-11-08] MEDS: Sodium Chloride 0.9% 1,000 ML IV SCH (08:40)
[2020-11-08] MEDS ORDERED: Furosemide 20 MG TAB PO SCH (09:00)
[2020-11-08] MEDS ORDERED: Potassium Chloride 20 MEQ TAB PO SCH ×2 (09:15→16:00)
--- NOTE | 2020-11-08 09:46 | RAD ---
XR Chest 1 View History: Weakness Comparison: Radiograph November 2019 Findings: Heart size is mildly enlarged along with the pulmonary arteries. Dual-lead pacer electrode tip projecting of the right atrium and right ventricle. Right rotator cuff insufficiency. No acute airspace consolidation, pneumothorax or significant effusion. Impression: No acute intrathoracic abnormality.
--- NOTE | 2020-11-08 09:53 | PDOC.CPN ---
- Subjective Date: 11/08/20 Time: 08:30 Interval history: No overnight events. Patient still with weakness. reviewed pacemaker reports. Normal device function. 99% v-paced. No arrhythmias. BNP >700. - Review of Systems Respiratory: reports: shortness of breath Cardiovascular: denies: chest pain, palpitation, edema, paroxysmal nocturnal dyspnea, orthopnea Gastrointestinal: denies: nausea, vomiting, diarrhea, constipation, abd pain, GI bleeding Musculoskeletal: reports: pain Neurological: reports: weakness - Objective Allergies/Adverse Reactions: Allergies Allergy/AdvReac Type Severity Reaction Status Date / Time No Known Allergies Allergy Verified 11/07/20 16:02 Visit Medications: Current Medications Acetaminophen (Acetaminophen 325 Mg Tab) 650 mg PO Q4H PRN PRN Reason: Headache/Fever/Mild Pain (1-3) Acetaminophen (Acetaminophen 650 Mg Suppository) 650 mg OR Q4H PRN PRN Reason: Headache/Fever/Mild Pain (1-3) Aspirin (Aspirin 81 Mg Enteric Coated Tablet) 81 mg PO DAILY [facility] Last Admin: 11/08/20 08:39 Dose: 81 mg Documented by: Atorvastatin Calcium (Atorvastatin Calcium 10 Mg Tab) 10 mg PO HS [facility] Last Admin: 11/07/20 20:48 Dose: 10 mg Documented by: Ferrous Sulfate (Ferrous Sulfate 325 Mg Tab) 325 mg PO DAILY [facility] Last Admin: 11/08/20 08:39 Dose: 325 mg Documented by: Furosemide (Furosemide 20 Mg Tab) 20 mg PO DAILY [facility] Last Admin: 11/08/20 08:39 Dose: 20 mg Documented by: Sodium Chloride (Normal Saline 0.9%) 1,000 mls @ 75 mls/hr IV .[id number] [facility] Last Admin: 11/08/20 08:40 Dose: 1,000 mls Documented by: Piperacillin Sod/Tazobactam (Sod 2.25 gm/ Sodium Chloride) 100 mls @ 200 mls/hr IVPB 0200,0800,1400,2000 [facility] Last Admin: 11/08/20 08:39 Dose: 100 mls Documented by: Miscellaneous Medication (Pharmacy To Dose Zosyn) 1 each IVPB ONE PRN PRN Reason: Pharmacy to dose Stop: 11/17/20 18:39 Multivitamins (Multivit, Therapeutic 1 Tab) 1 tab PO DAILY [facility] Last Admin: 11/08/20 08:39 Dose: 1 tab Documented by: Nystatin (Nystatin Powder 15 Gm Bot) 0 gm TOP BID PRN PRN Reason: Topical Irritations Last Admin: 11/07/20 20:49 Dose: 1 applic Documented by: Potassium Chloride (Potassium Chloride 20 Meq Tab) 40 meq PO NOW [facility] Stop: 11/08/20 11:15 Last Admin: 11/08/20 09:27 Dose: 40 meq Documented by: Saccharomyces Boulardii (Saccharomyces Boulardii 250 Mg Cap) 250 mg PO DAILY [facility] Last Admin: 11/08/20 08:39 Dose: 250 mg Documented by: Sodium Chloride (Flush - Normal Saline 10 Ml Syringe) 10 ml IVF Q12HR PRN PRN Reason: Saline Flush Sodium Chloride (Flush - Normal Saline 10 Ml Syringe) 10 ml IVF PRN PRN PRN Reason: Saline Flush Vital Signs & Weight: Vital Signs Temp Pulse Resp BP Pulse Ox 11/08/20 07:28 98.8 F 73 16 141/64 H 98 11/08/20 04:00 98.3 F 86 17 105/48 L 96 Weight 142 lb 14.4 oz - Physical Exam General: alert & oriented x3 HEENT: mucus membranes moist Neck: supple neck Cardiac: regular rate and rhythm Lungs: no wheezes, no rhonchi Neuro: grossly intact Abdomen: soft - Labs Result Diagrams: 11/08/20 03:14 11/08/20 03:14 Troponin/CKMB CK-MB (CK-2) 31.4 ng/mL (0-6.6) H* 11/07/20 13:38 Troponin I 0.397 ng/mL (< 0.028) H* 11/07/20 20:57 - Assessment/Plan Assessment/Plan: 1. Rhabdo 2. Elevated trop secondary to demand ischemia 3. Elevated BNP 4. s/p pacemaker Will check CXR and ECHO. Patient with history of high grade heart block and pacer dependent. Check EF. Possible diastolic vs systolic CHF. No anginal symptoms. No ischemic work-up at this time.
[2020-11-08 13:30] LABS: Anion Gap 14 mmol/L (10-20); BUN (Urea Nitrogen) 43 mg/dL (9.8-20.1); Calc. Creatinine Clearance 36 mL/min (70-130); Calcium 7.6 mg/dL (7.8-10.44); Carbon Dioxide 14 mmol/L (23-31); Chloride 120 mmol/L (98-107); Glucose 174 mg/dL (83-110); Potassium 3.4 mmol/L (3.5-5.1); Sodium 145 mmol/L (136-145)
[2020-11-08 13:57] LABS: Thyroid Stimulating Hormone 0.3866 uIU/mL (0.35-4.94)
--- NOTE | 2020-11-08 15:53 | PDOC.HOSPP ---
- Subjective Encounter Date: 11/08/20 Encounter Time: 11:00 Subjective: F/u: rhabdomyolysis THe patient is doing much better. She states that her legs felt weak and slightly numb when she stood up and she was unable to get up. Her daughter called over 11 times and the patient didn't answer the phone and her son found her on the ground. THe patient denies history of frequent falls The patient denies muscle cramps. She denies shortness of breath, palpitations, dizziness or lightheadedness. She denies starting on any new medications recently and her blood pressure medicines were not increased recently s - Objective Vital Signs & Weight: Vital Signs (12 hours) Temp Pulse Resp BP BP BP Pulse Ox 11/08/20 12:00 98.4 F 76 15 156/73 H 68 L 11/08/20 09:06 98.7 F 80 15 169/73 H 152/66 H 134/76 11/08/20 07:28 98.8 F 73 16 141/64 H 98 11/08/20 04:00 98.3 F 86 17 105/48 L 96 Weight Weight 142 lb 14.4 oz I&O: 11/07/20 11/08/20 11/09/20 06:59 06:59 06:59 Intake Total 944 480 Balance 944 480 Result Diagrams: 11/08/20 03:14 11/08/20 12:55 Hospitalist ROS - Review of Systems Constitutional: denies: fever, chills - Medication Medications: Active Medications Generic Name Dose Route Start Last Admin Trade Name Freq PRN Reason Stop Dose Admin Aspirin 81 mg 11/08/20 09:00 11/08/20 08:39 Aspirin 81 Mg Enteric Coated Tablet PO 81 mg DAILY [facility] Administration Atorvastatin Calcium 10 mg 11/07/20 21:00 11/07/20 20:48 Atorvastatin Calcium 10 Mg Tab PO 10 mg HS [facility] Administration Ferrous Sulfate 325 mg 11/08/20 09:00 11/08/20 08:39 Ferrous Sulfate 325 Mg Tab PO 325 mg DAILY [facility] Administration Sodium Chloride 1,000 mls @ 75 mls/hr 11/07/20 17:30 11/08/20 08:40 Normal Saline 0.9% IV 1,000 mls .[id number] [facility] Administration Piperacillin Sod/Tazobactam 100 mls @ 200 mls/hr 11/07/20 20:00 12/20/20 14:55 Sod 2.25 gm/ Sodium Chloride IVPB 100 mls 0200,0800,1400,2000 [facility] Administration Multivitamins 1 tab 11/08/20 09:00 11/08/20 08:39 Multivit, Therapeutic 1 Tab PO 1 tab DAILY [facility] Administration Nystatin 0 gm 11/07/20 18:40 11/07/20 20:49 Nystatin Powder 15 Gm Bot TOP 1 applic BID PRN Administration Topical Irritations Saccharomyces Boulardii 250 mg 11/08/20 09:00 11/08/20 08:39 Saccharomyces Boulardii 250 Mg Cap PO 250 mg DAILY [facility] Administration - Exam General Appearance: NAD, awake alert Eye: PERRL, anicteric sclera ENT: normocephalic atraumatic, no oropharyngeal lesions Neck: no JVD Heart: RRR, no murmur, no gallops, no rubs Respiratory: CTAB, no wheezes, no rales, no ronchi Gastrointestinal: soft, non-tender, non-distended, normal bowel sounds Extremities: no cyanosis, no clubbing, no edema Skin: normal turgor, no lesions, no rashes Neurological: cranial nerve grossly intact, normal sensation to touch, no weakness Musculoskeletal: normal tone, normal strength, no muscle wasting Hosp A/P - Plan ECHO: EF 50-55% with moderate to severe TR This is an 85 year old female who presented with weakness and found to have rhabdomyolysis Leukocytosis - WBC has improved from 22 to 17. He is on zosyn. BLood and urine cultures are preliminarily negative. Chest X ray normal - will discontinue antibiotics and monitor for any worsening Rhabdomyolysis - patient's CK level has improved from > 1000 to > 500. She is on IV fluids. Repeat CK level is pending, but will discontinue fluids for now Hypokalemia - potassium improved to 3.4, will give another 40 meq of potassium. Will discontinue lasix Heart murmur - ECHO is done which shows moderate to severe TR. Cardiology is on board CKD - creatinine stable at 1.11
[2020-11-08] MEDS: Atorvastatin Calcium 10 MG TAB PO SCH (21:35)
[2020-11-08] MEDS: Nystatin Powder 15 GM BOT TOP PRN (21:37)
[2020-11-09 04:27] LABS: #Basophils 0.1 thou/uL (0.0-0.2); #Eosinphils 0.1 thou/uL (0.0-0.7); #Lymphocytes 1.4 thou/uL (1.20-3.40); %Basophils 0.3 % (0.0-1.0); %Eosinophils 0.5 % (0.0-10.0); %Lymphocytes 7.5 % (21.0-51.0); %Monocytes 5.5 % (0.0-10.0); %Neutrophils 86.3 % (42.0-75.0); Hemoglobin 8.3 g/dL (12.0-16.0); Mean Corpuscular HGB CONC 32.7 g/dL (32.0-36.0); Mean Platelet Volume 8.2 fL (7.4-10.4); Platelet Count 236 thou/uL (130-400); RBC Distribution Width 13.4 % (11.5-14.5); Red Blood Cell (RBC) Count 2.43 mill/uL (4.20-5.40); White Blood Cell (WBC) Count 18.5 thou/uL (4.8-10.8)
[2020-11-09 04:49] LABS: Anion Gap 14 mmol/L (10-20); BUN (Urea Nitrogen) 31 mg/dL (9.8-20.1); Calc. Creatinine Clearance 45 mL/min (70-130); Calcium 7.8 mg/dL (7.8-10.44); Carbon Dioxide 13 mmol/L (23-31); Chloride 122 mmol/L (98-107); Glucose 111 mg/dL (83-110); Potassium 3.1 mmol/L (3.5-5.1); Sodium 146 mmol/L (136-145)
[2020-11-09] MEDS: Multivit, Therapeutic 1 TAB PO SCH (08:37)
[2020-11-09] MEDS: Ferrous Sulfate 325 MG TAB PO SCH (08:37)
[2020-11-09] MEDS: Aspirin 81 mg Enteric Coated Tablet PO SCH (08:37)
[2020-11-09] MEDS: Saccharomyces boulardii 250 MG CAP PO SCH (08:37)
--- NOTE | 2020-11-09 09:26 | RAD ---
XR Chest 1 View Portable History: Leukocytosis Comparison: Radiograph prior day Findings: Pulmonary arteries are enlarged. Heart size is enlarged. Dual-lead pacer electrode tip proj ecting over the right atrium and right ventricle. Scattered parenchymal scarring. Right rotator cuff insufficiency. No confluent airspace consolidation, pneumothorax or effusion. Impression: Chronic findings. No acute intrathoracic abnormality.
--- NOTE | 2020-11-09 10:11 | PQF ---
-CLINICAL DOCUMENTATION CLARIFICATION FORM: Dear Dr. Contreras Date: 11.09.20 Please exercise your independent, professional judgment in responding to the clarification form. Clinical indicators are provided on the bottom of this form for your review. Please check appropriate box(es): [ X] Type 2 TN (T2MI) secondary to Rhabdomyolysis [ ] Demand ischemia [ ] Other: [ ] Unable to determine For continuity of documentation, please document condition throughout progress notes and discharge summary. Thank You. To be completed by CDI/Coding staff for physician review: CLINICAL INDICATORS - SIGNS / SYMPTOMS / LABS / RESULTS AND LOCATION IN EMR ED: NSTEMI; RHABDOMYOLYSIS H&P (JOHNSON); lower leg weakness/fall; Rhabdomyolysis . Consult (Tl): No CP, pressure, or other associated symptoms. ....elevated troponin secondary to rhabdomyolysis . PN (Sugarek): elevated trop secondary to demand ischemia Labs: Troponin I 12. @ 1338 0.480 12.19 @ 1811 0.459 12.19 @ 2057 0.397 RISKS / RESULTS AND LOCATION IN EMR 11.07 H&P (Johnson): Presents to ED following a fall early hours this morning ED: PMH - CHF; DM2; New onset kidney problems; HTN; TREATMENTS / RESULTS AND LOCATION IN EMR H&P (JOHNSON) Given full dose Lovenox in ED for suspected NSTEMI COPE: Cardiology consult (11.07) Echo (11.08) CDS Signature: Krista Davenport RN, CCDS Phone #: [phone] [email or web address] This is a permanent part of the Medical Record [facility]
--- NOTE | 2020-11-09 10:43 | PQF ---
CLINICAL DOCUMENTATION CLARIFICATION FORM: Dear Dr. Contreras Date: 11.09.20 Please exercise your independent, professional judgment in responding to the clarification form. Clinical indicators are provided on the bottom of this form for your review. Please check appropriate box(es): [X ] Chronic Diastolic CHF [ ] No CHF [ ] Other: [ ] Unable to determine For continuity of documentation, please document condition throughout progress notes and discharge summary. Thank You. To be completed by CDI/Coding staff for physician review: CLINICAL INDICATORS - SIGNS / SYMPTOMS / LABS / RESULTS AND LOCATION IN EMR H&P (EUBANKS) Lower leg edema and erythema, per family stable (hx PVD) 12. PN (Sugarek): elevated BNP - will check CXR and ECHO. Possible diastolic vs systolic CHF. . ECHO: EF 50-55%; E/A flow reversal noted. Suggestive of diastolic dysfunction. . CXR: Heart size is mildly enlarged along w/ the pulmonary arteries. No acute intrathoracic abnormalities . CXR: Pulmonary arteries are enlarged. Heart size is enlarged. Chronic findings. No acute intrathoracic abnormality. Labs: BNP 11.08 787.4 RISKS / RESULTS AND LOCATION IN EMR ED: PMH - CHF; DM2; New onset kidney problems; HTN; TREATMENTS / RESULTS AND LOCATION IN EMR COPE: Cardiology consult (Tl 11.07) ECHO (11.08) LABS: BNP (11.08) 11.07 Consult (Keith): Home medication Lasix 20mg PO; Toprol-XL 50mg daily CDS Signature: Krista Davenport RN, CCDS Phone #: [phone] [email or web address]
[2020-11-09] MEDS ORDERED: Amoxicillin/Potassium Clav 875 MG TAB PO SCH ×2 (11:30→21:00)
[2020-11-09] MEDS ORDERED: Metoprolol Tartrate 50 MG TAB PO SCH ×2 (12:30→21:00)
[2020-11-09 13:04] VITALS: BMI 26.1
[2020-11-09] MEDS ORDERED: hydrALAZINE 25 MG TAB PO SCH (15:00)
[2020-11-09] MEDS ORDERED: Vancomycin HCl 25 MG/ML Oral PO SCH (15:00)
--- NOTE | 2020-11-09 16:10 | PDOC.CPN ---
- Subjective Date: 11/09/20 Time: 08:30 Interval history: No overnight events. Patient states she is feeling "ok." No new issues. - Review of Systems General: denies: fever/chills, weight/appetite/sleep changes, night sweats, fatigue Respiratory: denies: cough, congestion, shortness of breath, exercise intolerance Gastrointestinal: denies: nausea, vomiting, diarrhea, constipation, abd pain, GI bleeding Musculoskeletal: denies: pain, tenderness, stiffness, swelling, arthritis/ar thralgias Neurological: denies: numbness, syncope, seizure, weakness - Objective Allergies/Adverse Reactions: Allergies Allergy/AdvReac Type Severity Reaction Status Date / Time No Known Allergies Allergy Verified 11/07/20 16:02 Visit Medications: Current Medications Acetaminophen (Acetaminophen 325 Mg Tab) 650 mg PO Q4H PRN PRN Reason: Headache/Fever/Mild Pain (1-3) Last Admin: 11/09/20 02:29 Dose: 650 mg Documented by: Acetaminophen (Acetaminophen 650 Mg Suppository) 650 mg [place] Q4H PRN PRN Reason: Headache/Fever/Mild Pain (1-3) Amoxicillin/Clavulanate Potassium (Amoxicillin/Potassium Clav 875 Mg Tab) 875 mg PO Q12HR [facility] Aspirin (Aspirin 81 Mg Enteric Coated Tablet) 81 mg PO DAILY [facility] Last Admin: 11/09/20 08:37 Dose: 81 mg Documented by: Atorvastatin Calcium (Atorvastatin Calcium 10 Mg Tab) 10 mg PO HS [facility] Last Admin: 11/08/20 21:35 Dose: 10 mg Documented by: Ferrous Sulfate (Ferrous Sulfate 325 Mg Tab) 325 mg PO DAILY [facility] Last Admin: 11/09/20 08:37 Dose: 325 mg Documented by: Hydralazine HCl (Hydralazine 25 Mg Tab) 25 mg PO TID [facility] Last Admin: 11/09/20 15:06 Dose: 25 mg Documented by: Isosorbide Mononitrate (Isosorbide Mononitrate Er 60 Mg Tab) 60 mg PO BID [facility] Isosorbide Mononitrate (Isosorbide Mononitrate Er 60 Mg Tab) 60 mg PO NOW [facility] Stop: 11/09/20 17:15 Last Admin: 11/09/20 15:18 Dose: 60 mg Documented by: Metoprolol Tartrate (Metoprolol Tartrate 50 Mg Tab) 50 mg PO BID [facility] Miscellaneous Medication (Pharmacy To Dose Zosyn) 1 each IVPB ONE PRN PRN Reason: Pharmacy to dose Stop: 11/17/20 18:39 Multivitamins (Multivit, Therapeutic 1 Tab) 1 tab PO DAILY [facility] Last Admin: 11/09/20 08:37 Dose: 1 tab Documented by: Nystatin (Nystatin Powder 15 Gm Bot) 0 gm TOP BID PRN PRN Reason: Topical Irritations Last Admin: 11/08/20 21:37 Dose: 1 applic Documented by: Saccharomyces Boulardii (Saccharomyces Boulardii 250 Mg Cap) 250 mg PO DAILY [facility] Last Admin: 11/09/20 08:37 Dose: 250 mg Documented by: Sodium Chloride (Flush - Normal Saline 10 Ml Syringe) 10 ml IVF Q12HR PRN PRN Reason: Saline Flush Sodium Chloride (Flush - Normal Saline 10 Ml Syringe) 10 ml IVF PRN PRN PRN Reason: Saline Flush Vancomycin HCl (Vancomycin Hcl 25 Mg/Ml Oral) 125 mg PO Q6H [facility] Vital Signs & Weight: Vital Signs Temp Pulse Pulse Pulse Resp BP BP 11/09/20 15:06 204/88 H 11/09/20 11:17 98.6 F 78 16 11/09/20 09:24 85 156/67 H 11/09/20 09:11 85 87 191/91 H 11/09/20 09:06 11/09/20 08:30 98.9 F 83 16 BP BP BP BP BP Pulse Ox 11/09/20 15:06 11/09/20 11:17 170/72 H 96 11/09/20 09:24 11/09/20 09:11 156/67 H 11/09/20 09:06 207/91 H 192/85 H 195/84 H 11/09/20 08:30 184/83 H 96 Admit Weight 143 lb Weight 142 lb 14.4 oz - Physical Exam General: alert & oriented x3, no apparent distress HEENT: mucus membranes moist Neck: supple neck Cardiac: regular rate and rhythm Lungs: normal breath sounds, no wheezes, no rales Neuro: grossly intact Abdomen: soft, non-tender Extremities: 1+ LE edema - Labs Result Diagrams: 11/09/20 03:51 11/09/20 03:51 Troponin/CKMB CK-MB (CK-2) 31.4 ng/mL (0-6.6) H* 11/07/20 13:38 Troponin I 0.397 ng/mL (< 0.028) H* 11/07/20 20:57 - Assessment/Plan Assessment/Plan: 1. Rhabdo 2. Elevated trop secondary to demand ischemia 3. Elevated BNP 4. s/p pacemaker 5. UTI patient overall stable cardiac status. Would continue supportive care and treatment of UTI. Ok to transfer to medical floor. Will sign off. Please call back if new issues occur.
[2020-11-09] MEDS ORDERED: Labetalol HCl 100 MG/20 ML VIAL SLOW IVP PRN (17:02)
[2020-11-09 18:22] VITALS: BP 184/79; TEMP 97.6
--- NOTE | 2020-11-09 18:23 | PDOC.DS.DS ---
Provider - Provider Date of Admission: 11/07/20 13:40 Date of Discharge: 11/09/20 Admitting Provider: Chloe Stanford MD Primary Care Physician: Yonas Huffman Jr, MD Course - Hospital Course Hospital Course: Discharge Diagnoses: 1. Acute Kidney Injury 2. Leukocytosis 3. Macrocytic anemia 4. Hypernatremia 5. Hypokalemia 6. Elevated troponin likely secondary to supply demand ischemia Brief HPI: This is an 85-year-old female with a past medical history of hypertension, diabetes who presented to the emergency room due to weakness in her legs and an inability to get up. She was on the ground for a long period of time before her family called her. When she presented to the emergency room her CK level was 1132 and WBC of 22.9 . She also had a creatinine of 1.40. UA and chest Xray were normal. She was given empiric IV antibiotics and admitted to the hospital for further work-up. Hospital course: Rhabdomyolysis/acute kidney injury: The patient presented to creatinine of 1.40. She had a CK level of 1132. She was given IV fluids with improvement in her creatinine to 0.9. Her CK level improved to 2.94. Her muscle cramps resolved. She was seen by physical therapy recommended home with home health. Case management was consulted and referrals were sent for home health. Leukocytosis possibly secondary to UTI: Patient presented with a white count of 22.9. She had no respiratory or GI symptoms. She was started on Zosyn empirically on admission. Blood cultures were negative. Urine culture was initially negative so Iv zosyn was discontinued on 11/08. Her white blood cell count then increased again from 17 to 18. Repeat chest Xray was normal on 11/08. Urine culture this afternoon grew presumptive Pseudomonas with 10,000-25,000 CFU. She denies any frequency, urgency, dysuria. Given that she is asymptomatic, I will discharge the patient with Augmentin for an additional day to complete a 3-day course of antibiotics. The patient states that she did have an elevated white count with her PCP a few weeks ago and was asymptomatic at that time so this could be chronic. Given her history of C diff, she did have repeat C. difficile testing which was negative. She will be given oral vancomycin for for an additional week as a prophylaxis to prevent future C. difficile infection. Hypokalemia: Potassium was 3.1 at the time of discharge. She is given 40 mg of oral potassium. She should get a repeat potassium level in a week. She was discharged with potassium supplements daily as needed for diarrhea Hypertensive Urgency: Patient's blood pressure increased to the time of d ischarge to 200. She was resumed on all her oral home medications with improvement in her blood pressure to 140. Elevated troponin: She had mildly elevated troponin of 0.480 which down trended to 0.397. EKG was unremarkable. Cardiology was consulted and not feel the gregorio ent needed further work-up since this was possibly secondary to rhabdomyolysis. Echo showed no wall motion abnormalities. Weakness: Patient was seen by physical therapy recommended home with home health. Pertinent Studies: ECHO: EF 50-55%. Aortic valve sclerotic. Moderate to severe TR. - Labs Lab Results: 11/09/20 03:51 11/09/20 03:51 Abnormal Lab Results - Last 48 hrs 11/07/20 18:05: Urine Blood 1+ A, Urine RBC 4-6 A, Urine WBC 4-6 A, Urine Culture Reflexed Yes A 11/07/20 18:11: Troponin I 0.459 H* 11/07/20 18:11: Chloride 116 H, Carbon Dioxide 12 L, BUN 49 H, Creatinine 1.40 H, AST 72 H, Alkaline Phosphatase 113 H, Creatine Kinase 1132 H, Serum Total Protein 5.7 L, Albumin 3.3 L 11/07/20 18:11: WBC 22.9 H, RBC 2.80 L, Hgb 9.5 L, Hct 29.0 L, MCV 104.0 H, MCH 34.0 H, Neutrophils % (Manual) 39 L, Band Neuts % (Manual) 51 H, Lymphocytes % (Manual) 8 L 11/07/20 20:57: Troponin I 0.397 H* 11/08/20 03:14: Potassium 3.2 L, Chloride 118 H, Carbon Dioxide 14 L, BUN 48 H, Creatinine 1.11 H 11/08/20 03:14: WBC 17.1 H, RBC 2.37 L, Hgb 8.3 L, Hct 24.6 L, MCV 104.0 H, MCH 34.8 H, Neutrophils % 85.1 H, Lymphocytes % 8.6 L, Neutrophils # 14.5 H, Monocytes # 1.0 H 11/08/20 03:14: B-Natriuretic Peptide 787.4 H 11/08/20 03:14: Creatine Kinase 568 H 11/08/20 12:55: Potassium 3.4 L, Chloride 120 H, Carbon Dioxide 14 L, BUN 43 H, Creatinine 1.18 H, Calcium 7.6 L 11/08/20 12:55: Creatine Kinase 394 H 11/09/20 03:51: Sodium 146 H, Potassium 3.1 L, Chloride 122 H, Carbon Dioxide 13 L, BUN 31 H 11/09/20 03:51: WBC 18.5 H, RBC 2.43 L, Hgb 8.3 L, Hct 25.3 L, MCV 104.0 H, MCH 34.0 H, Neutrophils % 86.3 H, Lymphocytes % 7.5 L, Neutrophils # 16.0 H, Monocytes # 1.0 H Microbiology - Entire Visit 11/07/20 19:01 Urine voided Urine Culture - Final Presumptive Pseudomonas Gram Negative Tyler 11/07/20 18:11 Venous blood - Left Hand Blood Culture - Preliminary NO GROWTH AT 48 HOURS 11/07/20 18:11 Venous blood - Right Arm Blood Culture - Preliminary NO GROWTH AT 48 HOURS 11/09/20 01:31 Stool C. difficile GDH Antigen & Toxins - Final - Physical Exam Vitals: Vital Signs (12 hours) Temp Pulse Pulse Pulse Resp BP BP 11/09/20 15:06 204/88 H 11/09/20 11:17 98.6 F 78 16 11/09/20 09:24 85 156/67 H 11/09/20 09:11 85 87 191/91 H 11/09/20 09:06 11/09/20 08:30 98.9 F 83 16 BP BP BP BP BP Pulse Ox 11/09/20 15:06 11/09/20 11:17 170/72 H 96 11/09/20 09:24 11/09/20 09:11 156/67 H 11/09/20 09:06 207/91 H 192/85 H 195/84 H 11/09/20 08:30 184/83 H 96 Weight Admit Weight 143 lb Weight 142 lb 14.4 oz Physical Exam: The patient was seen and examined on the day of discharge. Physical exam: General: A and O x 3 CVS: systolic murmur left second intercostal space Lungs: CTAB Abdomen: +BS, soft, nontender, nondistended Extremities: no edema Problem - Discharge Plan Plan of Treatment: She had a a macrocytic anemia. B12/TSH were normal, folate was ordered but there was a problem with the folate lab here. Please consider starting over the counter folic acid. She had slightly elevated sodium of 146. Consider repeat sodium level in a week. - Time spent with Patient (mins): 35 Plan - Discharge Medications Prescriptions: Amoxicillin/Potassium Clav [Augmentin] 875 mg PO Q12HR #3 tab Vancomycin HCl 125 mg PO Q6H #36 capsule Home Medications: Medication Instructions Recorded Confirmed Type Isosorbide Mononitrate [Imdur ER] 60 mg PO BID 09/21/15 11/07/20 History Simvastatin [Zocor] 20 mg PO HS 09/21/15 11/07/20 History Acetaminophen With Codeine 1 tablet PO Q8HR PRN 12/01/19 11/07/20 History [Tylenol with Codeine #3] Ascorbic Acid [Vitamin C] 500 mg PO BID 12/01/19 11/07/20 History Aspirin [Aspir-Low] 81 mg PO DAILY 12/01/19 11/07/20 History Cholecalciferol (Vitamin D3) 5,000 unit PO DAILY 12/01/19 11/07/20 History [Vitamin D3] Ferrous Sulfate 325 mg PO DAILY 12/01/19 11/07/20 History Furosemide 20 mg PO DAILY 12/01/19 11/07/20 History Hydroxychloroquine Sulfate 300 mg PO DAILY 12/01/19 11/07/20 History [Plaquenil] Leflunomide [Arava] 10 mg PO DAILY 12/01/19 11/07/20 History Multivitamin [Multi-Vitamin Daily] 1 tablet PO DAILY 12/01/19 11/07/20 History Saccharomyces boulardii [Florastor] 250 mg PO DAILY 12/01/19 11/07/20 History hydrALAZINE [Apresoline] 25 mg PO TID 12/01/19 11/07/20 History Metoprolol Succinate [Toprol XL] 50 mg PO BID 11/07/20 11/07/20 History Risedronate Sodium [Actonel] 35 mg PO Q7DAYS 11/07/20 11/07/20 History Amoxicillin/Potassium Clav 875 mg PO Q12HR #3 tab 11/09/20 Rx [Augmentin] Potassium Chloride 20 meq PO DAILY PRN #7 tablet.er 11/09/20 Rx Vancomycin HCl 125 mg PO Q6H #36 capsule 11/09/20 Rx Allergies: No Known Allergies Allergy (Verified 11/07/20 16:02) - Discharge Instructions Activity:: Activity as Tolerated - Follow up Plan Referrals: Yonas Huffman Jr, MD [Primary Care Provider] - Disposition: HOME Quality - Care Measures CORE MEASURES:: N/A
[2020-11-09] MEDS ORDERED: Potassium Chloride 20 MEQ TAB PO SCH (19:00)
--- NOTE | 2020-11-11 03:04 | PQF ---
Dear : Zarina Contreras Date 11/11/2020 Please exercise your independent, professional judgment in responding to the clarification form. Clinical indicators are provided on the bottom of this form for your review Can you please further clarify the diagnosis of the patient? Please check appropriate box(es): [ ] Traumatic Rhabdomyolysis [ X ] Non-traumatic Rhabdomyolysis [ ] Other diagnosis please specify [ ] Unable to determine Physician Signature: Date/Time: For continuity of documentation, please document condition throughout progress notes and discharge summary. Thank You. To be completed by CDI/Coding staff for physician review: Present Clinical Indicators - Signs / Symptoms / Labs Results and Location in Medical Record [ x ] Chronic weakness of her legs ED Provider pg.1 [ x ] Last night she got up to go to the bathroom, her leg got weak, she fell down ED Provider pg.1 [ x ] Rhabdomyolysis ED Provider pg.3 [ x ] Elevated troponin 2/[address] Boothe [ x ] CK: 1132H, 568H, 394H Laboratory Present Risk Factors Results and Location in Medical Record [ x ] fall H and P pg.1 [ x ] Rheumatoid arthritis H ad P pg.2 [ x ] 85 years old H and P pg.1 Present Treatments Results and Location in Medical Record [ x ] IV Fluids MAR [ x ] CK monitoring Laboratory [ x ] Furosemide 20mg Oral JAN 29 [employer] Signature: Smith Perez Phone #: ext [phone] Date 11/11/2020 This is a permanent part of the Medical Record [facility]
[2020-11-14] MEDS ORDERED: RISEDRONATE SODIUM 5 MG PO SCH (09:00)
== END 2020-11-09 18:55 | disposition home health service (06) | DRG 682 ==
LOC: ERS 12:50 → 2NO 13:40
PROVIDERS: ADMIT Internal Medicine; ATTEND Internal Medicine
DX: N17.9 Acute kidney failure, unspecified (principal); I21.A1 Myocardial infarction type 2; M62.82 Rhabdomyolysis; I50.32 Chronic diastolic (congestive) heart failure; I13.0 Hypertensive heart and chronic kidney disease with heart failure and stage 1 through stage 4 chronic kidney disease, or unspecified chronic kidney disease; N39.0 Urinary tract infection, site not specified; E87.0 Hyperosmolality and hypernatremia; Z96.653 Presence of artificial knee joint, bilateral; E78.5 Hyperlipidemia, unspecified; M06.9 Rheumatoid arthritis, unspecified; D63.1 Anemia in chronic kidney disease; E11.22 Type 2 diabetes mellitus with diabetic chronic kidney disease; I48.0 Paroxysmal atrial fibrillation; N18.30 Chronic kidney disease, stage 3 unspecified; K21.9 Gastro-esophageal reflux disease without esophagitis; L30.4 Erythema intertrigo; I49.5 Sick sinus syndrome; E87.6 Hypokalemia; D72.829 Elevated white blood cell count, unspecified; I16.0 Hypertensive urgency; Z88.8 Allergy status to other drugs, medicaments and biological substances; Z79.899 Other long term (current) drug therapy; Z79.82 Long term (current) use of aspirin; Z95.0 Presence of cardiac pacemaker; Z95.1 Presence of aortocoronary bypass graft
CPT/HCPCS: 36415; 71045; 80048; 80053; 81001; 82550; 82553; 82607; 82746; 83605; 83735; 83880; 84443; 84484; 85025; 87040; 87086; 87324; 87449; 93005; 93306; J2543; J3490